=== PATIENT | female | born 1980 | race African-American/Black ===

== ENCOUNTER 2018-01-25 23:09 | Emergency (ER) | payer MEDICAID ==
[~2018-01-25] VITALS: Ht 165.1 cm; Wt 89.0 kg
[2018-01-25 23:28] VITALS: BP 135/81
[2018-01-26] MEDS ORDERED: IBUPROFEN 800MG TABLET PO ONE (02:30)
== END 2018-01-26 03:00 | disposition home or self-care (01) ==
LOC: ER 23:09
DX: L02.01 Cutaneous abscess of face (principal); F17.200 Nicotine dependence, unspecified, uncomplicated; F12.10 Cannabis abuse, uncomplicated
CPT/HCPCS: 99283

== ENCOUNTER 2018-06-18 13:59 | Emergency (ER) | payer MEDICAID ==
[~2018-06-18] VITALS: Ht 162.6 cm; Wt 95.5 kg
[2018-06-18 15:00] VITALS: BP 136/91
== END 2018-06-18 16:27 | disposition home or self-care (01) ==
LOC: ER 13:59
DX: S63.91XA Sprain of unspecified part of right wrist and hand, initial encounter (principal); F12.10 Cannabis abuse, uncomplicated; E66.9 Obesity, unspecified; Z68.36 Body mass index [BMI] 36.0-36.9, adult; X50.0XXA Overexertion from strenuous movement or load, initial encounter; Y93.89 Activity, other specified; Y92.89 Other specified places as the place of occurrence of the external cause
CPT/HCPCS: 29125; 81025; 99283

== ENCOUNTER 2018-11-05 13:14 | Emergency (ER) | payer MEDICAID ==
[~2018-11-05] VITALS: Ht 165.1 cm; Wt 99.0 kg
[2018-11-05] MEDS ORDERED: DIPHENHYDRAMINE 50MG/ML VIAL IV ONE (18:15)
[2018-11-05] MEDS ORDERED: SODIUM CHLORIDE 0.9% 1,000 ML IV ONE ×2 (18:15)
[2018-11-05] MEDS ORDERED: METOCLOPRAMIDE HCL 10MG/2ML VIAL IV ONE (18:15)
[2018-11-05 18:31] LABS: CLARITY URINE CLEAR (CLEAR); COLOR URINE YELLOW (YELLOW); KETONES URINE NEGATIVE (NEGATIVE); LEUKOCYTE ESTERASE URINE NEGATIVE (NEGATIVE); NITRITE URINE NEGATIVE (NEGATIVE); OCCULT BLOOD URINE NEGATIVE (NEGATIVE); PH URINE 6.5 (4.5-8.0); PROTEIN URINE NEGATIVE (NEGATIVE); SPECIFIC GRAVITY URINE 1.041 (1.005-1.030); UROBILINOGEN URINE 0.2 E.U./dL (0.2-1.0)
[2018-11-05 19:11] LABS: EOSINOPHILS % 0.5 % (0.0-5.0); HEMATOCRIT. 42.6 % (36.0-48.0); HEMOGLOBIN. 14.1 g/dL (12.0-16.0); LYMPHOCYTES % 39.4 % (20.0-50.0); MEAN CORPUSCULAR HEMOGLOBIN 28.7 pg (28.0-32.0); MEAN CORPUSCULAR VOLUME 86.4 fL (81.0-99.0); MONOCYTES % 8.1 % (2.0-8.0); PLATELET 317 x1000/uL (130-400); RED BLOOD CELL COUNT 4.93 mill/uL (4.2-5.4); RED CELL DISTRIBUTION WIDTH 13.8 % (11.6-14.6)
[2018-11-05 19:15] LABS: CHLORIDE 101 mEq/L (98-107)
[2018-11-05 19:18] LABS: INR 0.9; PROTHROMBIN TIME 9.5 sec (9.1-11.1)
[2018-11-05 19:42] LABS: B-HCG QUANTITATIVE 68182 mIU/mL (<3)
[2018-11-05 19:51] VITALS: BP 124/81
== END 2018-11-05 20:39 | disposition home or self-care (01) ==
LOC: ER 13:14
DX: O20.0 Threatened abortion (principal); O26.891 Other specified pregnancy related conditions, first trimester; R51 Headache; E86.0 Dehydration; R42 Dizziness and giddiness; O09.521 Supervision of elderly multigravida, first trimester; Z3A.09 9 weeks gestation of pregnancy
CPT/HCPCS: 36415; 76801; 76817; 80053; 81003; 81025; 84702; 85025; 85610; 86850; 86900; 86901; 87804; 96361; 96374; 96375; 99284; J1200; J2765; J7030

== ENCOUNTER 2018-12-30 08:09 | Emergency (ER) | payer MEDICAID ==
[~2018-12-30] VITALS: Ht 162.6 cm; Wt 100.0 kg
[2018-12-30] MEDS ORDERED: KETOROLAC 60MG/2ML VIAL IM ONE (09:30)
[2018-12-30] MEDS ORDERED: ACETAMINOPHEN 500MG TABLET PO ONE (09:30)
[2018-12-30 09:56] LABS: BASOPHILS % 0.7 % (0.0-2.0); EOSINOPHILS % 0.4 % (0.0-5.0); HEMATOCRIT. 39.8 % (36.0-48.0); HEMOGLOBIN. 13.3 g/dL (12.0-16.0); LYMPHOCYTES % 28.7 % (20.0-50.0); MEAN CORPUSCULAR HEMOGLOBIN 29.3 pg (28.0-32.0); MEAN CORPUSCULAR VOLUME 87.3 fL (81.0-99.0); MEAN PLATELET VOLUME 7.7 fl (7.4-10.4); MONOCYTES % 8.9 % (2.0-8.0); NEUTROPHILS % 61.3 % (40.0-76.0); PLATELET 282 x1000/uL (130-400); RED BLOOD CELL COUNT 4.56 mill/uL (4.2-5.4); RED CELL DISTRIBUTION WIDTH 13.6 % (11.6-14.6)
[2018-12-30 10:02] LABS: CHLORIDE 105 mEq/L (98-107)
[2018-12-30 10:26] LABS: B-HCG QUANTITATIVE 6234 mIU/mL (<3)
[2018-12-30 11:10] LABS: CLARITY URINE CLEAR (CLEAR); COLOR URINE YELLOW (YELLOW); KETONES URINE TRACE (NEGATIVE); LEUKOCYTE ESTERASE URINE NEGATIVE (NEGATIVE); NITRITE URINE NEGATIVE (NEGATIVE); OCCULT BLOOD URINE 2+ (NEGATIVE); PH URINE 7.5 (4.5-8.0); PROTEIN URINE NEGATIVE (NEGATIVE); UROBILINOGEN URINE 0.2 E.U./dL (0.2-1.0)
[2018-12-30 13:18] VITALS: BP 108/78
== END 2018-12-30 13:20 | disposition home or self-care (01) ==
LOC: ER 08:09
DX: O46.92 Antepartum hemorrhage, unspecified, second trimester (principal); G44.209 Tension-type headache, unspecified, not intractable; Z3A.18 18 weeks gestation of pregnancy
CPT/HCPCS: 36415; 76805; 81025; 84702; 86850; 86900; 99284

== ENCOUNTER 2019-03-23 04:39 | Observation (INO) | payer MEDICAID ==
[~2019-03-23] VITALS: Ht 165.1 cm; Wt 105.2 kg
[2019-03-23] MEDS ORDERED: TERBUTALINE SULFATE 1MG/ML VIAL SUBCUT PRN (05:15)
[2019-03-23] MEDS ORDERED: LACTATED RINGERS 1,000 ML IV SCH (05:15)
[2019-03-23 06:08] LABS: CLARITY URINE CLEAR (CLEAR); COLOR URINE YELLOW (YELLOW); KETONES URINE 4+ (NEGATIVE); LEUKOCYTE ESTERASE URINE NEGATIVE (NEGATIVE); NITRITE URINE NEGATIVE (NEGATIVE); OCCULT BLOOD URINE NEGATIVE (NEGATIVE); PH URINE 5.5 (4.5-8.0); PROTEIN URINE 1+ (NEGATIVE); SPECIFIC GRAVITY URINE 1.048 (1.005-1.030); UROBILINOGEN URINE 0.2 E.U./dL (0.2-1.0)
[2019-03-23 06:13] LABS: CHLORIDE 107 mEq/L (98-107)
[2019-03-23 06:24] LABS: BASOPHILS % 0.2 % (0.0-2.0); EOSINOPHILS % 0.1 % (0.0-5.0); HEMATOCRIT. 40.3 % (36.0-48.0); HEMOGLOBIN. 13.9 g/dL (12.0-16.0); LYMPHOCYTES % 9.1 % (20.0-50.0); MEAN CORPUSCULAR HEMOGLOBIN 30.6 pg (28.0-32.0); MEAN CORPUSCULAR VOLUME 88.5 fL (81.0-99.0); MEAN PLATELET VOLUME 8.6 fl (7.4-10.4); MONOCYTES % 5.4 % (2.0-8.0); NEUTROPHILS % 85.2 % (40.0-76.0); PLATELET 237 x1000/uL (130-400); RED BLOOD CELL COUNT 4.55 mill/uL (4.2-5.4); RED CELL DISTRIBUTION WIDTH 13.6 % (11.6-14.6)
== END 2019-03-23 07:40 | disposition home or self-care (01) ==
LOC: 8 EST LDRP 04:39
PROVIDERS: ADMIT Obstetrics & Gynecology; ATTEND Obstetrics & Gynecology
DX: O62.9 Abnormality of forces of labor, unspecified (principal); O21.2 Late vomiting of pregnancy; Z3A.29 29 weeks gestation of pregnancy
CPT/HCPCS: 36415; 80051; 80053; 81003; 85025; 96360; 96361; 96372; 99281; G0378; J3105; J7120

== ENCOUNTER 2019-04-01 10:50 | Observation (INO) | payer MEDICAID ==
[~2019-04-01] VITALS: Ht 165.1 cm; Wt 103.4 kg
[2019-04-01] MEDS ORDERED: FOLI-43 MT (11:57)
[2019-04-01] MEDS ORDERED: PREN1TAB78 MT (11:57)
== END 2019-04-01 13:40 | disposition home or self-care (01) ==
LOC: 8 EST LDRP 10:50
PROVIDERS: ADMIT Obstetrics & Gynecology; ATTEND Obstetrics & Gynecology
DX: O26.853 Spotting complicating pregnancy, third trimester (principal); Z3A.30 30 weeks gestation of pregnancy
CPT/HCPCS: 76805; 76817; 99281; G0378

== ENCOUNTER 2024-09-13 09:06 | Emergency (ER) | payer MEDICAID, OTHER ==
[~2024-09-13] VITALS: Ht 165.1 cm; Wt 84.0 kg
[~2024-09-13 09:06] MED LIST: ASPI-1160 PO; CLOP-31 PO; FOLI-43 MT; LANTUSUD SUBCUT; LIP40 PO; PREN1TAB78 MT
[2024-09-13 09:20] VITALS: BP 129/82; PULSE 90; RESP 16; TEMP 98.2; O2SAT 100
[2024-09-13] MEDS ORDERED: CYCL10TA21 MT (11:34)
[2024-09-13] MEDS ORDERED: NAPR-1176 MT (11:34)
[2024-09-13] MEDS: LIDOCAINE HCL/EPINEPHRINE 1%-EPI 1:100,000 20ML VIAL INFIL ONE (11:54)
[2024-09-13] MEDS ORDERED: LIDOCAINE HCL 1% 20ML VIAL INFIL ONE (13:15)
== END 2024-09-13 12:10 | disposition home or self-care (01) ==
LOC: ER 09:06
DX: M79.18 Myalgia, other site (principal); E11.9 Type 2 diabetes mellitus without complications; I25.2 Old myocardial infarction; F12.10 Cannabis abuse, uncomplicated; Z79.02 Long term (current) use of antithrombotics/antiplatelets; Z79.82 Long term (current) use of aspirin; Z79.899 Other long term (current) drug therapy
CPT/HCPCS: 99283; 81025; 93005; J3490